=== PATIENT | female | born 1985 | race Hispanic/Latino ===

== ENCOUNTER 2017-09-06 11:25 | Emergency (ER) | payer BC ==
[2017-09-06 12:28] LABS: APPEARANCE,URINE Clear (CLEAR); BILIRUBIN,URINE Negative (NEGATIVE); COLOR,URINE Yellow (YELLOW); GLUCOSE, URINE (UA) Negative (NEGATIVE); KETONES,URINE Negative (NEGATIVE); LEUKOCYTE ESTERASE ,URINE Trace (NEGATIVE); NITRATE,URINE Negative (NEGATIVE); OCCULT BLOOD,URINE Negative (NEGATIVE); PROTEIN,URINE Negative (NEGATIVE)
[2017-09-06 12:32] LABS: HCG,QUAL RESULT POSITIVE (NEGATIVE)
[2017-09-06 12:35] LABS: AMPHET/METH SCREEN,URINE NEGATIVE (NEGATIVE); BARBITURATE SCREEN, URINE NEGATIVE (NEGATIVE); BENZODIAZEPINES SCREEN,URINE NEGATIVE (NEGATIVE); CANNABINOID SCREEN,URINE POSITIVE (NEGATIVE); COCAINE SCREEN,URINE NEGATIVE (NEGATIVE); OPIATE SCREEN,URINE NEGATIVE (NEGATIVE); PHENCYCLIDINE SCREEN,URINE NEGATIVE (NEGATIVE)
[2017-09-06 12:59] LABS: BACTERIA,URINE Rare /HPF (None Seen); RBC,URINE 0-1 /HPF (0-1); SQUAMOUS EPITHELIAL CELL,UR Rare /LPF (0-2); WBC,URINE 0-1 /HPF (0-1)
== END 2017-09-06 12:55 | disposition home or self-care (01) ==
LOC: EDH 11:25
DX: O21.9 Vomiting of pregnancy, unspecified (principal); O26.891 Other specified pregnancy related conditions, first trimester; M54.5 Low back pain; Z72.0 Tobacco use; Z3A.01 Less than 8 weeks gestation of pregnancy
CPT/HCPCS: 36415; 80305; 81001; 81025; 84702

== ENCOUNTER 2017-11-07 11:30 | Emergency (ER) | payer BC, MEDICAID ==
[2017-11-07] MEDS ORDERED: SODIUM CHLORIDE 0.9% 1000ML 1,000 ML IV ONE (11:57)
[2017-11-07] MEDS ORDERED: ONDANSETRON ODT 4 MG TAB ONE ×2 (11:57→16:55)
[2017-11-07 12:14] LABS: BASOPHILS % (AUTO) 0.2 % (0.0-5.0); EOSINOPHILS % (AUTO) 0.1 % (0.0-8.0); HEMATOCRIT 36.3 % (36-48); LYMPHOCYTES % (AUTO) 4.3 % (21.0-51.0); MEAN CORPUSCULAR HEMOGLOBIN 32.1 pg (27.0-33.0); MEAN CORPUSCULAR HGB CONC 34.7 g/dL (32.0-36.0); MEAN CORPUSCULAR VOLUME 92.5 fL (79-99); MONOCYTES % (AUTO) 2.1 % (3.0-13.0); NEUTROPHILS % (AUTO) 93.3 % (40.0-77.0); PLATELET COUNT (AUTO) 212 K/uL (130-400); RED BLOOD CELL COUNT(AUTO) 3.92 MIL/uL (4.00-5.50); RED CELL DISTRIBUTION WIDTH 13.2 % (11.0-15.5); WHITE BLOOD COUNT (AUTO) 14.2 K/uL (4.8-10.8)
[2017-11-07 12:31] LABS: CREATININE 0.8 mg/dL (0.5-1.5); POTASSIUM 3.3 mmol/L (3.5-5.1)
[2017-11-07 12:57] LABS: ALBUMIN 3.4 g/dL (3.5-5.0); BILIRUBIN,TOTAL 0.7 mg/dL (0.2-1.0); TOTAL PROTEIN, SERUM 7.6 g/dL (6.0-8.3)
== END 2017-11-07 17:26 | disposition home or self-care (01) ==
LOC: EDH 11:30
DX: O21.9 Vomiting of pregnancy, unspecified (principal); Z3A.14 14 weeks gestation of pregnancy
CPT/HCPCS: 36415; 76805; 80053; 84702; 85025; 85378; 93005; 96360; 99285; J7030

== ENCOUNTER 2017-12-05 10:00 | Emergency (ER) | payer MEDICAID ==
[2017-12-05] MEDS ORDERED: SODIUM CHLORIDE 0.9% 1000ML 1,000 ML IV ONE (10:39)
[2017-12-05 10:41] LABS: BASOPHILS % (AUTO) 0.3 % (0.0-5.0); EOSINOPHILS % (AUTO) 2.9 % (0.0-8.0); HEMATOCRIT 34.1 % (36-48); LYMPHOCYTES % (AUTO) 16.8 % (21.0-51.0); MEAN CORPUSCULAR HEMOGLOBIN 32.2 pg (27.0-33.0); MEAN CORPUSCULAR HGB CONC 34.4 g/dL (32.0-36.0); MEAN CORPUSCULAR VOLUME 93.7 fL (79-99); PLATELET COUNT (AUTO) 192 K/uL (130-400); RED BLOOD CELL COUNT(AUTO) 3.64 MIL/uL (4.00-5.50); RED CELL DISTRIBUTION WIDTH 13.3 % (11.0-15.5); WHITE BLOOD COUNT (AUTO) 10.4 K/uL (4.8-10.8)
[2017-12-05 10:50] LABS: CREATININE 0.5 mg/dL (0.5-1.5); POTASSIUM 3.6 mmol/L (3.5-5.1)
[2017-12-05 11:16] LABS: ALBUMIN 3.1 g/dL (3.5-5.0); BILIRUBIN,TOTAL 0.3 mg/dL (0.2-1.0); TOTAL PROTEIN, SERUM 6.8 g/dL (6.0-8.3)
== END 2017-12-05 13:41 | disposition home or self-care (01) ==
LOC: EDH 10:00
DX: O21.0 Mild hyperemesis gravidarum (principal); Z3A.17 17 weeks gestation of pregnancy; Z87.891 Personal history of nicotine dependence
CPT/HCPCS: 36415; 76805; 80053; 84702; 85025; 96360; 96361; 99285; J7030

== ENCOUNTER 2018-01-29 09:47 | Observation (INO) | payer MEDICAID ==
[~2018-01-29] VITALS: Ht 175.3 cm; Wt 121.6 kg
[2018-01-29 10:24] LABS: BILIRUBIN,URINE Negative (NEGATIVE); COLOR,URINE Yellow (YELLOW); GLUCOSE, URINE (UA) Negative (NEGATIVE); KETONES,URINE Negative (NEGATIVE); LEUKOCYTE ESTERASE ,URINE Small (NEGATIVE); NITRATE,URINE Negative (NEGATIVE); OCCULT BLOOD,URINE Negative (NEGATIVE); PH,URINE 8.5 (5.0-8.0); PROTEIN,URINE Negative (NEGATIVE)
[2018-01-29 10:28] LABS: APPEARANCE,URINE SLIGHTLY CLOUDY (CLEAR)
[2018-01-29 10:32] LABS: AMPHET/METH SCREEN,URINE NEGATIVE (NEGATIVE); BARBITURATE SCREEN, URINE NEGATIVE (NEGATIVE); BENZODIAZEPINES SCREEN,URINE NEGATIVE (NEGATIVE); CANNABINOID SCREEN,URINE POSITIVE (NEGATIVE); COCAINE SCREEN,URINE NEGATIVE (NEGATIVE); OPIATE SCREEN,URINE NEGATIVE (NEGATIVE); PHENCYCLIDINE SCREEN,URINE NEGATIVE (NEGATIVE)
[2018-01-29 10:37] LABS: BACTERIA,URINE Few /HPF (None Seen); MUCUS,URINE Few LPF (None Seen); RBC,URINE None Seen /HPF (0-1); SQUAMOUS EPITHELIAL CELL,UR Few /HPF (0-2)
[2018-01-29] MEDS ORDERED: PROMETHAZINE HCL 25 MG/ML 1ML AMPULE IM SCH (11:30)
[2018-01-29 11:41] LABS: BASOPHILS % (AUTO) 0.1 % (0.0-5.0); EOSINOPHILS % (AUTO) 2.6 % (0.0-8.0); HEMATOCRIT 29.9 % (36-48); LYMPHOCYTES % (AUTO) 19.5 % (21.0-51.0); MEAN CORPUSCULAR HEMOGLOBIN 33.7 pg (27.0-33.0); MEAN CORPUSCULAR HGB CONC 35.2 g/dL (32.0-36.0); MEAN CORPUSCULAR VOLUME 95.8 fL (79-99); NEUTROPHILS % (AUTO) 72.8 % (40.0-77.0); PLATELET COUNT (AUTO) 181 K/uL (130-400); RED BLOOD CELL COUNT(AUTO) 3.12 MIL/uL (4.00-5.50); RED CELL DISTRIBUTION WIDTH 13.2 % (11.0-15.5); WHITE BLOOD COUNT (AUTO) 9.4 K/uL (4.8-10.8)
[2018-01-29 11:53] LABS: CREATININE 0.5 mg/dL (0.5-1.5); POTASSIUM 3.6 mmol/L (3.5-5.1)
[2018-01-29 11:58] LABS: ALBUMIN 2.7 g/dL (3.5-5.0); BILIRUBIN,TOTAL 0.2 mg/dL (0.2-1.0); TOTAL PROTEIN, SERUM 6.2 g/dL (6.0-8.3)
[2018-01-29] MEDS ORDERED: LACTATED RINGERS 1000ML 1,000 ML IV SCH (12:00)
== END 2018-01-29 12:30 | disposition home or self-care (01) ==
LOC: EDH 09:47 → LDH 09:48
PROVIDERS: ADMIT Obstetrics & Gynecology; ATTEND Obstetrics & Gynecology
DX: O21.1 Hyperemesis gravidarum with metabolic disturbance (principal); F19.10 Other psychoactive substance abuse, uncomplicated; O99.322 Drug use complicating pregnancy, second trimester; Z3A.26 26 weeks gestation of pregnancy
CPT/HCPCS: 36415; 80053; 80305; 81001; 82150; 83690; 85025; 96372; 99285; G0378 ×3; J2550; 96360; 96361

== ENCOUNTER 2018-02-11 10:02 | Observation (INO) | payer MEDICAID ==
[2018-02-11 11:24] LABS: APPEARANCE,URINE Cloudy (CLEAR); BILIRUBIN,URINE Negative (NEGATIVE); COLOR,URINE Yellow (YELLOW); GLUCOSE, URINE (UA) Negative (NEGATIVE); KETONES,URINE Negative (NEGATIVE); LEUKOCYTE ESTERASE ,URINE Negative (NEGATIVE); NITRATE,URINE Negative (NEGATIVE); OCCULT BLOOD,URINE Negative (NEGATIVE); PROTEIN,URINE Negative (NEGATIVE)
[2018-02-11 11:30] LABS: AMPHET/METH SCREEN,URINE NEGATIVE (NEGATIVE); BARBITURATE SCREEN, URINE NEGATIVE (NEGATIVE); BENZODIAZEPINES SCREEN,URINE NEGATIVE (NEGATIVE); CANNABINOID SCREEN,URINE POSITIVE (NEGATIVE); COCAINE SCREEN,URINE NEGATIVE (NEGATIVE); OPIATE SCREEN,URINE NEGATIVE (NEGATIVE); PHENCYCLIDINE SCREEN,URINE NEGATIVE (NEGATIVE)
[2018-02-11 12:00] LABS: RBC,URINE 0-1 /HPF (0-1)
[2018-02-11 12:01] LABS: WBC,URINE 0-1 /HPF (0-1)
[2018-02-11 12:02] LABS: MUCUS,URINE Few LPF (None Seen); SQUAMOUS EPITHELIAL CELL,UR Few /HPF (0-2)
[2018-02-11 12:03] LABS: AMORPHOUS SEDIMENT,UR Many /LPF (None Seen); BACTERIA,URINE Few /HPF (None Seen)
[2018-02-11] MEDS ORDERED: LACTATED RINGERS 1000ML 1,000 ML IV SCH (12:15)
[2018-02-11] MEDS ORDERED: PROMETHAZINE HCL 25 MG/ML 1ML AMPULE IM SCH (12:15)
[2018-02-11] MEDS ORDERED: ONDANSETRON HCL 4 MG/2 ML VIAL IVP SCH (12:15)
== END 2018-02-11 15:22 | disposition home or self-care (01) ==
LOC: EDH 10:02 → LDH 10:03
PROVIDERS: ADMIT Obstetrics & Gynecology; ATTEND Obstetrics & Gynecology
DX: O99.352 Diseases of the nervous system complicating pregnancy, second trimester (principal); O26.893 Other specified pregnancy related conditions, third trimester; O21.2 Late vomiting of pregnancy; R42 Dizziness and giddiness; G43.909 Migraine, unspecified, not intractable, without status migrainosus; O99.342 Other mental disorders complicating pregnancy, second trimester; O99.322 Drug use complicating pregnancy, second trimester; F12.10 Cannabis abuse, uncomplicated; F41.9 Anxiety disorder, unspecified; Z3A.27 27 weeks gestation of pregnancy; Z79.899 Other long term (current) drug therapy
CPT/HCPCS: 80305; 81001; 96361 ×2; 96372; 96374; 99285; G0378 ×5; J2405; J2550; J7120; 96360

== ENCOUNTER 2018-06-17 08:55 | Emergency (ER) | payer MEDICAID ==
[2018-06-17 10:04] LABS: BASOPHILS % (AUTO) 0.5 % (0.0-5.0); EOSINOPHILS % (AUTO) 8.7 % (0.0-8.0); HEMATOCRIT 37.6 % (36-48); LYMPHOCYTES % (AUTO) 26.8 % (21.0-51.0); MEAN CORPUSCULAR HEMOGLOBIN 31.1 pg (27.0-33.0); MEAN CORPUSCULAR HGB CONC 33.4 g/dL (32.0-36.0); MEAN CORPUSCULAR VOLUME 92.9 fL (79-99); MONOCYTES % (AUTO) 8.6 % (3.0-13.0); NEUTROPHILS % (AUTO) 55.4 % (40.0-77.0); PLATELET COUNT (AUTO) 199 K/uL (130-400); RED BLOOD CELL COUNT(AUTO) 4.05 MIL/uL (4.00-5.50); WHITE BLOOD COUNT (AUTO) 6.7 K/uL (4.8-10.8)
[2018-06-17 10:10] LABS: APPEARANCE,URINE TURBID (CLEAR); BILIRUBIN,URINE NEGATIVE (NEGATIVE); COLOR,URINE RED (YELLOW); GLUCOSE, URINE (UA) NEGATIVE (NEGATIVE); KETONES,URINE NEGATIVE (NEGATIVE); LEUKOCYTE ESTERASE ,URINE SMALL (NEGATIVE); NITRATE,URINE NEGATIVE (NEGATIVE); OCCULT BLOOD,URINE LARGE (NEGATIVE); PROTEIN,URINE 100 (NEGATIVE)
[2018-06-17 10:14] LABS: CREATININE 0.8 mg/dL (0.5-1.5); POTASSIUM 3.9 mmol/L (3.5-5.1)
[2018-06-17 10:16] LABS: INR 0.93 (0.85-1.15); PARTIAL THROMBOPLASTIN TIME 28.1 SEC (26.3-35.5); PROTHROMBIN TIME 9.8 SEC (9.6-11.6)
[2018-06-17 10:20] LABS: ALBUMIN 3.4 g/dL (3.5-5.0); BILIRUBIN,TOTAL 0.2 mg/dL (0.2-1.0); TOTAL PROTEIN, SERUM 7.2 g/dL (6.0-8.3)
[2018-06-17 10:23] LABS: RBC,URINE TNTC /HPF (0-1)
[2018-06-17 10:24] LABS: BACTERIA,URINE Few /HPF (None Seen); WBC,URINE 26-50 /HPF (0-1)
[2018-06-17 10:25] LABS: SQUAMOUS EPITHELIAL CELL,UR Few /HPF (0-2)
[2018-06-17] MEDS ORDERED: IBUPROFEN 200 MG TAB ONE (13:40)
== END 2018-06-17 13:51 | disposition home or self-care (01) ==
LOC: EDH 08:55
DX: R60.0 Localized edema (principal); M65.842 Other synovitis and tenosynovitis, left hand; N39.0 Urinary tract infection, site not specified; Z79.899 Other long term (current) drug therapy
CPT/HCPCS: 36415; 80053; 81001; 82550; 85025; 85378; 85610; 85730; 93970

== ENCOUNTER 2019-02-04 16:58 | Emergency (ER) | payer OTHER | END 2019-02-04 17:13 | disposition home or self-care (01) | LOC: EDH 16:58 | DX: S93.402A Sprain of unspecified ligament of left ankle, initial encounter (principal); Z72.0 Tobacco use; X58.XXXA Exposure to other specified factors, initial encounter; Y93.89 Activity, other specified; Y92.39 Other specified sports and athletic area as the place of occurrence of the external cause; Y99.8 Other external cause status | CPT/HCPCS: 99281 ==

== ENCOUNTER 2020-05-16 13:00 | Emergency (ER) | payer BC ==
[2020-05-16] MEDS ORDERED: DEXAMETHASONE SOD PHOSPHATE 10MG/ML 1ML VIAL ONE (14:25)
[2020-05-16] MEDS ORDERED: KETOROLAC TROMETHAMINE 30MG/ML ONE (14:26)
== END 2020-05-16 15:23 | disposition home or self-care (01) ==
LOC: EDH 13:00
DX: M25.542 Pain in joints of left hand (principal); M25.541 Pain in joints of right hand; M19.90 Unspecified osteoarthritis, unspecified site; Z72.0 Tobacco use
CPT/HCPCS: 96372 ×2; 99284; J1100; J1885

== ENCOUNTER 2020-07-08 21:42 | Emergency (ER) | payer BC, OTHER ==
[2020-07-08] MEDS ORDERED: ORPHENADRINE CITRATE 30 MG/ML ML ONE (22:18)
[2020-07-08] MEDS ORDERED: KETOROLAC TROMETHAMINE 60 MG/2 ML VIAL ONE (22:18)
[2020-07-08] MEDS ORDERED: PREDNISONE 20 MG TABLET ONE (22:18)
== END 2020-07-08 23:22 | disposition home or self-care (01) ==
LOC: EDH 21:42
DX: S39.012A Strain of muscle, fascia and tendon of lower back, initial encounter (principal); S29.012A Strain of muscle and tendon of back wall of thorax, initial encounter; M19.90 Unspecified osteoarthritis, unspecified site; M06.9 Rheumatoid arthritis, unspecified; Z72.0 Tobacco use; Z98.890 Other specified postprocedural states; V49.49XA Driver injured in collision with other motor vehicles in traffic accident, initial encounter; Y93.89 Activity, other specified; Y92.89 Other specified places as the place of occurrence of the external cause; Y99.8 Other external cause status
CPT/HCPCS: 96372 ×2; 99284; J1885; J2360

== ENCOUNTER 2020-08-06 11:36 | Emergency (ER) | payer OTHER ==
[2020-08-06] MEDS ORDERED: CYCLOBENZAPRINE HCL 10 MG TABLET ONE (12:08)
[2020-08-06] MEDS ORDERED: HYDROCODONE/ACETAMINOPHEN 10/325 MG TAB ONE (12:08)
[2020-08-06 13:39] LABS: APPEARANCE,URINE CLOUDY (CLEAR); BILIRUBIN,URINE NEGATIVE (NEGATIVE); COLOR,URINE RED (YELLOW); GLUCOSE, URINE (UA) NEGATIVE (NEGATIVE); KETONES,URINE NEGATIVE (NEGATIVE); LEUKOCYTE ESTERASE ,URINE NEGATIVE (NEGATIVE); NITRATE,URINE NEGATIVE (NEGATIVE); OCCULT BLOOD,URINE LARGE (NEGATIVE); PH,URINE 5.5 (5.0-8.0); PROTEIN,URINE TRACE mg/dL (NEGATIVE); UROBILINOGEN,URINE 0.2 mg/dL (0.2-1.0)
[2020-08-06 13:41] LABS: HCG,QUAL RESULT NEGATIVE (NEGATIVE)
[2020-08-06 13:43] LABS: RBC,URINE TNTC /HPF (0-1)
[2020-08-06 13:44] LABS: BACTERIA,URINE Rare /HPF (None Seen); SQUAMOUS EPITHELIAL CELL,UR Few /HPF (0-2)
== END 2020-08-06 13:58 | disposition home or self-care (01) ==
LOC: EDH 11:36
DX: M54.5 Low back pain (principal); M06.9 Rheumatoid arthritis, unspecified; Z72.0 Tobacco use
CPT/HCPCS: 72100; 81001; 81025

== ENCOUNTER 2020-10-07 14:35 | Emergency (ER) | payer OTHER ==
[2020-10-07] MEDS ORDERED: METHYLPREDNISOLONE SOD SUCC 125MG/2ML VIAL ONE (14:58)
== END 2020-10-07 16:21 | disposition home or self-care (01) ==
LOC: EDH 14:35
DX: M06.9 Rheumatoid arthritis, unspecified (principal); M65.842 Other synovitis and tenosynovitis, left hand; M65.841 Other synovitis and tenosynovitis, right hand; Z72.0 Tobacco use
CPT/HCPCS: 96374; 99283; J2930

== ENCOUNTER 2021-01-13 11:41 | Inpatient (IN) | payer SELFPAY ==
[~2021-01-13] VITALS: Ht 175.3 cm; Wt 55.1 kg
[2021-01-13 12:29] LABS: BASOPHILS % (AUTO) 0.4 % (0.0-5.0); EOSINOPHILS % (AUTO) 6.8 % (0.0-8.0); HEMATOCRIT 38.8 % (36-48); LYMPHOCYTES % (AUTO) 20.6 % (21.0-51.0); MEAN CORPUSCULAR HEMOGLOBIN 29.8 pg (27.0-33.0); MEAN CORPUSCULAR HGB CONC 31.7 g/dL (32.0-36.0); MEAN CORPUSCULAR VOLUME 93.9 fL (79-99); NEUTROPHILS % (AUTO) 64.8 % (40.0-77.0); PLATELET COUNT (AUTO) 250 K/uL (130-400); RED BLOOD CELL COUNT(AUTO) 4.13 MIL/uL (4.00-5.50); RED CELL DISTRIBUTION WIDTH 12.2 % (11.0-15.5); WHITE BLOOD COUNT (AUTO) 8.3 K/uL (4.8-10.8)
[2021-01-13 12:40] LABS: CREATININE 0.8 mg/dL (0.5-1.5); POTASSIUM 4.4 mmol/L (3.5-5.1)
[2021-01-13 12:44] LABS: ALBUMIN 3.4 g/dL (3.5-5.0); BILIRUBIN,TOTAL 0.3 mg/dL (0.2-1.0); TOTAL PROTEIN, SERUM 6.8 g/dL (6.0-8.3)
[2021-01-13 12:51] LABS: INR 0.98 (0.85-1.15); PROTHROMBIN TIME 10.7 SEC (9.6-11.6)
[2021-01-13 12:53] LABS: PARTIAL THROMBOPLASTIN TIME 26.5 SEC (26.3-35.5)
[2021-01-13 13:01] LABS: APPEARANCE,URINE Cloudy (CLEAR); BILIRUBIN,URINE Negative (NEGATIVE); COLOR,URINE Yellow (YELLOW); GLUCOSE, URINE (UA) Negative (NEGATIVE); KETONES,URINE Negative (NEGATIVE); LEUKOCYTE ESTERASE ,URINE Moderate (NEGATIVE); NITRATE,URINE Negative (NEGATIVE); OCCULT BLOOD,URINE Large (NEGATIVE); PH,URINE 5.5 (5.0-8.0); PROTEIN,URINE Negative (NEGATIVE)
[2021-01-13 13:06] LABS: HCG,QUAL RESULT NEGATIVE (NEGATIVE)
[2021-01-13 13:24] LABS: BACTERIA,URINE Few /HPF (None Seen); MUCUS,URINE Few LPF (None Seen); RBC,URINE >100 /HPF (0-1)
[2021-01-13] MEDS ORDERED: IOHEXOL-350 75 ML VIAL IV ONE (13:30)
[2021-01-13] MEDS ORDERED: ZOSYN 3.375GM+NS 50ML 50 ML IV ONE (13:36)
[2021-01-13] MEDS ORDERED: HYDROCODONE/ACETAMINOPHEN 10/325 MG TAB ONE (13:37)
[2021-01-13] MEDS ORDERED: SODIUM CHLORIDE 0.9% 50 ML IV ONE ×2 (13:37→16:09)
[2021-01-13] MEDS: CLINDAMYCIN 600 MG/D5% WATER 50 ML IV SCH ×2 (15:30→21:30)
[2021-01-13] MEDS: CEFEPIME HCL 2 GM VIAL IVP SCH (15:30)
[2021-01-13] MEDS ORDERED: VANCOMYCIN PROTOCOL PER PHARMACY IV SCH (15:30)
[2021-01-13] MEDS: LACTATED RINGERS 1000ML 1,000 ML IV SCH (15:30)
[2021-01-13] MEDS ORDERED: CEFEPIME HCL 2 GM VIAL ONE (16:07)
[2021-01-13] MEDS ORDERED: CLINDAMYCIN 600 MG/D5% WATER 50 ML IV ONE ×2 (16:08→22:59)
[2021-01-13] MEDS ORDERED: LACTATED RINGERS 1000ML 1,000 ML IV ONE (16:08)
[2021-01-13] MEDS ORDERED: COMPOUND IV REFRIGERATED 1 EACH IVSOLN MISC PRN (17:15)
[2021-01-13] MEDS: VANCOMYCIN 1.75 GM in SODIUM CHLORIDE 0.9% 250 ML IV SCH (18:00)
[2021-01-13] MEDS ORDERED: VANCOMYCIN 1GM+NS 250ML 250 ML IV ONE (18:07)
[2021-01-14] MEDS: CLINDAMYCIN 600 MG/D5% WATER 50 ML IV SCH ×4 (03:30→21:30)
[2021-01-14] MEDS: CEFEPIME HCL 2 GM VIAL IVP SCH ×2 (03:30→15:30)
[2021-01-14] MEDS: LACTATED RINGERS 1000ML 1,000 ML IV SCH ×2 (04:50→18:10)
[2021-01-14] MEDS ORDERED: CLINDAMYCIN 600 MG/D5% WATER 50 ML IV ONE ×3 (05:08→19:36)
[2021-01-14] MEDS ORDERED: CEFEPIME HCL 2 GM VIAL ONE ×2 (05:08→15:38)
[2021-01-14] MEDS ORDERED: ACETAMINOPHEN-CODEINE 300/30MG TAB PO PRN (05:15)
[2021-01-14 06:17] LABS: BASOPHILS % (AUTO) 0.2 % (0.0-5.0); EOSINOPHILS % (AUTO) 4.2 % (0.0-8.0); HEMATOCRIT 35.3 % (36-48); LYMPHOCYTES % (AUTO) 20.4 % (21.0-51.0); MEAN CORPUSCULAR HEMOGLOBIN 30.6 pg (27.0-33.0); MEAN CORPUSCULAR HGB CONC 33.1 g/dL (32.0-36.0); MEAN CORPUSCULAR VOLUME 92.4 fL (79-99); MONOCYTES % (AUTO) 7.4 % (3.0-13.0); NEUTROPHILS % (AUTO) 67.6 % (40.0-77.0); PLATELET COUNT (AUTO) 221 K/uL (130-400); RED BLOOD CELL COUNT(AUTO) 3.82 MIL/uL (4.00-5.50); RED CELL DISTRIBUTION WIDTH 12.2 % (11.0-15.5); WHITE BLOOD COUNT (AUTO) 8.2 K/uL (4.8-10.8)
[2021-01-14 06:25] LABS: CREATININE 0.8 mg/dL (0.5-1.5)
[2021-01-14] MEDS: FAMOTIDINE 20MG TAB 20 MG TAB PO SCH ×2 (09:00→21:49)
[2021-01-14] MEDS: VANCOMYCIN 1.75 GM in SODIUM CHLORIDE 0.9% 250 ML IV SCH ×2 (09:00→22:02)
[2021-01-14] MEDS ORDERED: SODIUM CHLORIDE 0.9% 50 ML IV ONE (15:38)
[2021-01-14 20:00] VITALS: BP 124/80
[2021-01-14] MEDS: MORPHINE 2 MG SYG (2MG/1ML) IVP PRN (21:49)
[2021-01-15] VITALS: BP 133/78
[2021-01-15] MEDS: CEFEPIME HCL 2 GM VIAL IVP SCH ×2 (03:16→15:53)
[2021-01-15] MEDS: CLINDAMYCIN 600 MG/D5% WATER 50 ML IV SCH ×2 (03:53→09:23)
[2021-01-15 04:00] VITALS: BP 114/67
[2021-01-15] MEDS: LACTATED RINGERS 1000ML 1,000 ML IV SCH ×2 (05:41→20:07)
[2021-01-15 06:03] LABS: BASOPHILS % (AUTO) 0.3 % (0.0-5.0); EOSINOPHILS % (AUTO) 7.1 % (0.0-8.0); HEMATOCRIT 36.2 % (36-48); LYMPHOCYTES % (AUTO) 28.6 % (21.0-51.0); MEAN CORPUSCULAR HEMOGLOBIN 29.5 pg (27.0-33.0); MEAN CORPUSCULAR VOLUME 92.1 fL (79-99); MONOCYTES % (AUTO) 10.5 % (3.0-13.0); NEUTROPHILS % (AUTO) 53.3 % (40.0-77.0); PLATELET COUNT (AUTO) 204 K/uL (130-400); RED BLOOD CELL COUNT(AUTO) 3.93 MIL/uL (4.00-5.50); RED CELL DISTRIBUTION WIDTH 12.2 % (11.0-15.5); WHITE BLOOD COUNT (AUTO) 5.9 K/uL (4.8-10.8)
[2021-01-15 06:16] LABS: POTASSIUM 4.1 mmol/L (3.5-5.1)
[2021-01-15 06:17] LABS: CREATININE 0.9 mg/dL (0.5-1.5)
[2021-01-15 08:00] VITALS: BP 127/72
[2021-01-15] MEDS: VANCOMYCIN 1.75 GM in SODIUM CHLORIDE 0.9% 250 ML IV SCH ×2 (09:23→20:03)
[2021-01-15] MEDS: FAMOTIDINE 20MG TAB 20 MG TAB PO SCH ×2 (09:24→20:01)
[2021-01-15] MEDS: ENOXAPARIN SODIUM 40 MG/0.4 ML SYRINGE SQ SCH (09:24)
[2021-01-15] MEDS: MORPHINE 2 MG SYG (2MG/1ML) IVP PRN ×2 (11:11→22:34)
[2021-01-15 12:00] VITALS: BP 124/82
[2021-01-15] MEDS: ONDANSETRON HCL 4 MG/2 ML VIAL IVP PRN ×2 (12:58→20:01)
[2021-01-15 16:00] VITALS: BP 125/84
[2021-01-15] MEDS: ACETAMINOPHEN-CODEINE 300/30MG TAB PO PRN (20:01)
[2021-01-15 20:12] VITALS: BP 123/70
[2021-01-16] VITALS (26 sets, daily range): BP systolic 90–143; BP diastolic 45–83
[2021-01-16] MEDS: CEFEPIME HCL 2 GM VIAL IVP SCH ×2 (03:02→17:42)
[2021-01-16 03:42] LABS: BASOPHILS % (AUTO) 0.3 % (0.0-5.0); EOSINOPHILS % (AUTO) 6.1 % (0.0-8.0); HEMATOCRIT 35.4 % (36-48); LYMPHOCYTES % (AUTO) 26.4 % (21.0-51.0); MEAN CORPUSCULAR HEMOGLOBIN 30.7 pg (27.0-33.0); MEAN CORPUSCULAR HGB CONC 33.1 g/dL (32.0-36.0); MEAN CORPUSCULAR VOLUME 92.9 fL (79-99); MONOCYTES % (AUTO) 10.4 % (3.0-13.0); NEUTROPHILS % (AUTO) 56.4 % (40.0-77.0); PLATELET COUNT (AUTO) 196 K/uL (130-400); RED BLOOD CELL COUNT(AUTO) 3.81 MIL/uL (4.00-5.50); RED CELL DISTRIBUTION WIDTH 12.3 % (11.0-15.5); WHITE BLOOD COUNT (AUTO) 6.9 K/uL (4.8-10.8)
[2021-01-16 03:47] LABS: POTASSIUM 3.8 mmol/L (3.5-5.1)
[2021-01-16] MEDS: ONDANSETRON HCL 4 MG/2 ML VIAL IVP PRN ×2 (07:05→15:53)
[2021-01-16] MEDS: FAMOTIDINE 20MG TAB 20 MG TAB PO SCH ×2 (09:00→20:55)
[2021-01-16] MEDS: ENOXAPARIN SODIUM 40 MG/0.4 ML SYRINGE SQ SCH (09:00)
[2021-01-16] MEDS: VANCOMYCIN 1.75 GM in SODIUM CHLORIDE 0.9% 250 ML IV SCH ×2 (09:37→20:47)
[2021-01-16] MEDS: LACTATED RINGERS 1000ML 1,000 ML IV SCH (10:10)
[2021-01-16] MEDS ORDERED: PROPOFOL 10 MG/ML 20ML VIAL IV ONE (14:28)
[2021-01-16] MEDS ORDERED: FENTANYL CITRATE PF 50 MCG/1 ML 2ML VIAL ONE (14:28)
[2021-01-16] MEDS ORDERED: MIDAZOLAM HCL 1 MG/ML 2ML VIAL ONE (14:28)
[2021-01-16] MEDS ORDERED: ROCURONIUM 10MG/1ML SYR 10 MG/ML ML ONE (14:28)
[2021-01-16] MEDS ORDERED: SUCCINYLCHOLINE 200MG/10ML SYR ONE (14:28)
[2021-01-16] MEDS ORDERED: LIDOCAINE HCL MPF 1% 5ML VIAL ONE (14:28)
[2021-01-16] MEDS ORDERED: NEOSTIGMINE 5MG/5ML SYR IV ONE (15:03)
[2021-01-16] MEDS ORDERED: GLYCOPYRROLATE 1 MG/5 ML SYRINGE ONE (15:03)
[2021-01-16] MEDS ORDERED: MEPERIDINE-PF 25 MG/ML SYG ONE ×2 (15:24→15:37)
[2021-01-16] MEDS: MORPHINE 2 MG SYG (2MG/1ML) IVP PRN (19:11)
[2021-01-17 00:16] VITALS: BP 118/72
[2021-01-17] MEDS: LACTATED RINGERS 1000ML 1,000 ML IV SCH ×2 (02:02→12:57)
[2021-01-17] MEDS: ACETAMINOPHEN-CODEINE 300/30MG TAB PO PRN ×2 (02:06→15:59)
[2021-01-17] MEDS: CEFEPIME HCL 2 GM VIAL IVP SCH (02:53)
[2021-01-17 04:16] VITALS: BP 123/71
[2021-01-17 08:51] LABS: BASOPHILS % (AUTO) 0.3 % (0.0-5.0); EOSINOPHILS % (AUTO) 7.6 % (0.0-8.0); HEMATOCRIT 35.7 % (36-48); LYMPHOCYTES % (AUTO) 25.1 % (21.0-51.0); MEAN CORPUSCULAR HEMOGLOBIN 30.1 pg (27.0-33.0); MEAN CORPUSCULAR HGB CONC 32.5 g/dL (32.0-36.0); MEAN CORPUSCULAR VOLUME 92.7 fL (79-99); MONOCYTES % (AUTO) 8.9 % (3.0-13.0); NEUTROPHILS % (AUTO) 57.8 % (40.0-77.0); PLATELET COUNT (AUTO) 205 K/uL (130-400); RED BLOOD CELL COUNT(AUTO) 3.85 MIL/uL (4.00-5.50); RED CELL DISTRIBUTION WIDTH 12.3 % (11.0-15.5); WHITE BLOOD COUNT (AUTO) 6.7 K/uL (4.8-10.8)
[2021-01-17 08:58] LABS: CREATININE 0.8 mg/dL (0.5-1.5); POTASSIUM 4.2 mmol/L (3.5-5.1)
[2021-01-17 09:24] VITALS: BP 110/61
[2021-01-17] MEDS: VANCOMYCIN 1.75 GM in SODIUM CHLORIDE 0.9% 250 ML IV SCH (10:06)
[2021-01-17] MEDS: FAMOTIDINE 20MG TAB 20 MG TAB PO SCH (10:06)
[2021-01-17] MEDS: MORPHINE 2 MG SYG (2MG/1ML) IVP PRN ×2 (10:15→23:31)
[2021-01-17] MEDS: ONDANSETRON HCL 4 MG/2 ML VIAL IVP PRN (10:15)
[2021-01-17 11:30] VITALS: BP 121/62
[2021-01-17] MEDS ORDERED: VANCOMYCIN 1.25 GM in SODIUM CHLORIDE 0.9% 250 ML IV SCH (14:00)
[2021-01-17] MEDS: LEVOFLOXACIN 750 MG TABLET PO SCH (16:02)
[2021-01-17 16:32] VITALS: BP 111/50
[2021-01-17 20:01] VITALS: BP 108/63
[2021-01-18] VITALS (7 sets, daily range): BP systolic 111–148; BP diastolic 52–96
[2021-01-18] MEDS: LEVOFLOXACIN 750 MG TABLET PO SCH (09:57)
[2021-01-18] MEDS: FAMOTIDINE 20MG TAB 20 MG TAB PO SCH ×2 (09:58→21:25)
[2021-01-18] MEDS: MORPHINE 2 MG SYG (2MG/1ML) IVP PRN ×2 (15:52→21:25)
[2021-01-18] MEDS: ACETAMINOPHEN-CODEINE 300/30MG TAB PO PRN (22:51)
[2021-01-19] VITALS (22 sets, daily range): BP systolic 113–164; BP diastolic 64–92
[2021-01-19 06:23] LABS: BASOPHILS % (AUTO) 0.3 % (0.0-5.0); EOSINOPHILS % (AUTO) 9.3 % (0.0-8.0); HEMATOCRIT 35.1 % (36-48); LYMPHOCYTES % (AUTO) 30.8 % (21.0-51.0); MEAN CORPUSCULAR HEMOGLOBIN 30.5 pg (27.0-33.0); MEAN CORPUSCULAR HGB CONC 32.8 g/dL (32.0-36.0); MEAN CORPUSCULAR VOLUME 93.1 fL (79-99); MONOCYTES % (AUTO) 9.7 % (3.0-13.0); NEUTROPHILS % (AUTO) 49.4 % (40.0-77.0); PLATELET COUNT (AUTO) 184 K/uL (130-400); RED BLOOD CELL COUNT(AUTO) 3.77 MIL/uL (4.00-5.50); RED CELL DISTRIBUTION WIDTH 12.3 % (11.0-15.5); WHITE BLOOD COUNT (AUTO) 6.6 K/uL (4.8-10.8)
[2021-01-19 06:30] LABS: CREATININE 0.8 mg/dL (0.5-1.5); POTASSIUM 4.1 mmol/L (3.5-5.1)
[2021-01-19] MEDS ORDERED: MINERAL OIL 30 ML UDCUP ONE (07:20)
[2021-01-19] MEDS ORDERED: CEFAZOLIN SODIUM 1 GM VIAL ONE (07:20)
[2021-01-19] MEDS ORDERED: LACTATED RINGERS 1000ML 1,000 ML IV ONE (07:35)
[2021-01-19] MEDS ORDERED: PROPOFOL 10 MG/ML 20ML VIAL IV ONE (07:52)
[2021-01-19] MEDS ORDERED: MIDAZOLAM HCL 1 MG/ML 2ML VIAL ONE (07:52)
[2021-01-19] MEDS ORDERED: ROCURONIUM 10MG/1ML SYR 10 MG/ML ML ONE (08:00)
[2021-01-19] MEDS ORDERED: GLYCOPYRROLATE 1 MG/5 ML SYRINGE ONE (08:28)
[2021-01-19] MEDS ORDERED: ONDANSETRON HCL 4 MG/2 ML VIAL ONE (08:28)
[2021-01-19] MEDS ORDERED: NEOSTIGMINE 5MG/5ML SYR IV ONE (08:29)
[2021-01-19] MEDS ORDERED: MEPERIDINE-PF 25 MG/ML SYG ONE ×2 (08:49→09:07)
[2021-01-19] MEDS: LEVOFLOXACIN 750 MG TABLET PO SCH (09:56)
[2021-01-19] MEDS: FAMOTIDINE 20MG TAB 20 MG TAB PO SCH ×2 (09:57→20:25)
[2021-01-19] MEDS ORDERED: CEFAZOLIN SODIUM 1 GM VIAL IVP SCH (11:00)
[2021-01-19] MEDS: ACETAMINOPHEN-CODEINE 300/30MG TAB PO PRN ×2 (15:01→21:22)
[2021-01-19] MEDS ORDERED: MORPHINE 2 MG SYG (2MG/1ML) ONE (16:27)
[2021-01-19] MEDS: MORPHINE 2 MG SYG (2MG/1ML) IVP PRN (22:16)
[2021-01-20] VITALS: BP 130/82
[2021-01-20] MEDS: ACETAMINOPHEN-CODEINE 300/30MG TAB PO PRN ×2 (03:19→14:31)
[2021-01-20 04:00] VITALS: BP 119/59
[2021-01-20] MEDS: MORPHINE 2 MG SYG (2MG/1ML) IVP PRN ×2 (06:23→13:00)
[2021-01-20 06:51] LABS: BASOPHILS % (AUTO) 0.2 % (0.0-5.0); EOSINOPHILS % (AUTO) 9.2 % (0.0-8.0); LYMPHOCYTES % (AUTO) 29.3 % (21.0-51.0); MEAN CORPUSCULAR HEMOGLOBIN 29.9 pg (27.0-33.0); MEAN CORPUSCULAR VOLUME 93.6 fL (79-99); MONOCYTES % (AUTO) 9.2 % (3.0-13.0); NEUTROPHILS % (AUTO) 51.9 % (40.0-77.0); PLATELET COUNT (AUTO) 191 K/uL (130-400); RED BLOOD CELL COUNT(AUTO) 3.74 MIL/uL (4.00-5.50); RED CELL DISTRIBUTION WIDTH 12.5 % (11.0-15.5); WHITE BLOOD COUNT (AUTO) 5.4 K/uL (4.8-10.8)
[2021-01-20 07:30] LABS: CREATININE 0.7 mg/dL (0.5-1.5); POTASSIUM 4.1 mmol/L (3.5-5.1)
[2021-01-20 08:00] VITALS: BP 121/74
[2021-01-20] MEDS: FAMOTIDINE 20MG TAB 20 MG TAB PO SCH (08:33)
[2021-01-20] MEDS: LEVOFLOXACIN 750 MG TABLET PO SCH (08:33)
[2021-01-20 12:00] VITALS: BP 128/88
[2021-01-20] MEDS ORDERED: LEVO750T46 PO (14:09)
[2021-01-20] MEDS ORDERED: MORPHINE 2 MG SYG (2MG/1ML) IVP ONE (17:00)
== END 2021-01-20 18:45 | disposition home or self-care (01) | DRG 577 ==
LOC: EDH 11:41 → EDHIP 11:42 → 3BH 01-14 19:36
PROVIDERS: ADMIT Internal Medicine; ATTEND Internal Medicine
PROC: 0JB60ZZ Excision of Chest Subcutaneous Tissue and Fascia, Open Approach (ICD-10-PCS; principal; 2021-01-16 13:25)
PROC: 0JB60ZZ Excision of Chest Subcutaneous Tissue and Fascia, Open Approach (ICD-10-PCS; 2021-01-19)
PROC: 0HBJXZZ Excision of Left Upper Leg Skin, External Approach (ICD-10-PCS; 2021-01-19)
PROC: 0HR5X74 Replacement of Chest Skin with Autologous Tissue Substitute, Partial Thickness, External Approach (ICD-10-PCS; 2021-01-19 07:51)
DX: N64.1 Fat necrosis of breast (principal); N39.0 Urinary tract infection, site not specified; Z68.1 Body mass index [BMI] 19.9 or less, adult; R78.81 Bacteremia; N61.0 Mastitis without abscess; E66.9 Obesity, unspecified; M06.9 Rheumatoid arthritis, unspecified; E28.2 Polycystic ovarian syndrome; B96.5 Pseudomonas (aeruginosa) (mallei) (pseudomallei) as the cause of diseases classified elsewhere; R31.9 Hematuria, unspecified; Z20.822 Contact with and (suspected) exposure to COVID-19; Z98.82 Breast implant status; Z88.8 Allergy status to other drugs, medicaments and biological substances; Z91.018 Allergy to other foods
CPT/HCPCS: 36415; 71260; 80048; 80053; 80202; 81001; 81025; 82948; 83605; 84145; 85025; 85610; 85730; 87040; 87070; 87071; 87076; 87077; 87088; 87186; 87205; 87635; C9803; G0378; J0330; J0690; J0692; J2175; J2250; J2405; J2543; J2704; J2710; J3010; J3370; J3490; J7030; J7050; J7120; Q9967

== ENCOUNTER 2021-09-18 18:20 | Emergency (ER) | payer OTHER ==
[~2021-09-18] VITALS: Ht 175.3 cm; Wt 120.7 kg
[~2021-09-18 18:20] MED LIST: LEVO750T46 PO
[2021-09-18] MEDS ORDERED: OSEL75 PO (20:02)
[2021-09-18] MEDS ORDERED: ONDA4TAB10 PO (20:02)
[2021-09-18] MEDS ORDERED: BENZ-39 PO (20:02)
[2021-09-18 20:17] VITALS: BP 124/78
== END 2021-09-18 20:18 | disposition home or self-care (01) ==
LOC: EEVIPCON 18:20 → EDH 18:20
DX: J10.1 Influenza due to other identified influenza virus with other respiratory manifestations (principal); M06.9 Rheumatoid arthritis, unspecified; J39.9 Disease of upper respiratory tract, unspecified; Z20.822 Contact with and (suspected) exposure to COVID-19
CPT/HCPCS: 87635; 87804 ×2; 99283; C9803

== ENCOUNTER 2022-08-02 07:20 | Emergency (ER) | payer OTHER ==
[~2022-08-02] VITALS: Ht 177.8 cm; Wt 127.0 kg
[~2022-08-02 07:20] MED LIST changes: +BENZ-39 PO; -LEVO750T46 PO; +LEVO750T68 PO; +ONDA4TAB10 PO; +OSEL75 PO
[2022-08-02 07:24] VITALS: BP 153/96
[2022-08-02 10:24] LABS: APPEARANCE,URINE CLEAR (CLEAR); BILIRUBIN,URINE NEGATIVE (NEGATIVE); COLOR,URINE YELLOW (YELLOW); GLUCOSE, URINE (UA) NEGATIVE (NEGATIVE); KETONES,URINE 10 mg/dL (NEGATIVE); LEUKOCYTE ESTERASE ,URINE 25 Leu/uL (NEGATIVE); NITRATE,URINE NEGATIVE (NEGATIVE); PH,URINE 7.5 (5.0-8.0); PROTEIN,URINE 20 mg/dL (NEGATIVE)
[2022-08-02 10:53] LABS: MUCUS,URINE RARE LPF (None Seen); RBC,URINE 26-50 /HPF (0-1); SQUAMOUS EPITHELIAL CELL,UR FEW /HPF (0-2)
[2022-08-02] MEDS ORDERED: ONDANSETRON 4MG INJ IVP SCH (12:02)
[2022-08-02] MEDS ORDERED: ONDANSETRON ODT 4MG TAB SL SCH (12:06)
[2022-08-02] MEDS ORDERED: CEFTRIAXONE 1G VIAL ONE (12:09)
[2022-08-02] MEDS ORDERED: ACETAMINOPHEN 500 MG TABLET ONE (12:09)
[2022-08-02] MEDS ORDERED: ONDANSETRON ODT 4MG TAB ONE (12:10)
[2022-08-02] MEDS ORDERED: NITROFURANTOIN MONOHYD/M-CRYST 100 MG CAPSULE PO ONE (12:10)
[2022-08-02] MEDS ORDERED: ONDA4TAB10 PO (12:16)
[2022-08-02] MEDS ORDERED: MACR100 PO (12:16)
[2022-08-02] MEDS ORDERED: ACETAMINOPHEN 500 MG TABLET PO ONE (12:30)
[2022-08-02] MEDS ORDERED: NITROFURANTOIN MONOHYD/M-CRYST 100 MG CAPSULE PO SCH (12:30)
[2022-08-02] MEDS ORDERED: CEFTRIAXONE 1G VIAL IM ONE (12:30)
== END 2022-08-02 12:33 | disposition home or self-care (01) ==
LOC: EDH 07:20
DX: N39.0 Urinary tract infection, site not specified (principal); J10.1 Influenza due to other identified influenza virus with other respiratory manifestations; Z20.822 Contact with and (suspected) exposure to COVID-19; M19.90 Unspecified osteoarthritis, unspecified site
CPT/HCPCS: 99284; 87635; 87804 ×2; 81001; C9803; J0696

== ENCOUNTER 2023-04-19 10:41 | Emergency (ER) | payer OTHER ==
[~2023-04-19] VITALS: Ht 175.3 cm; Wt 132.0 kg
[~2023-04-19 10:41] MED LIST changes: +MACR100 PO
[2023-04-19 11:25] LABS: BASOPHILS # (AUTO) 0.01 K/uL (0.00-0.20); BASOPHILS % (AUTO) 0.1 % (0.0-5.0); IMMATURE GRANULOCYTE ABSOLUTE 0.03 K/uL (0-1); LYMPHOCYTES # (AUTO) 1.2 K/uL (1.0-4.8); LYMPHOCYTES % (AUTO) 13.7 % (21.0-51.0); MEAN CORPUSCULAR HEMOGLOBIN 31.1 pg (27.0-33.0); MEAN CORPUSCULAR HGB CONC 32.9 g/dL (32.0-36.0); MEAN CORPUSCULAR VOLUME 94.5 fL (79-99); MONOCYTES # (AUTO) 0.3 K/uL (0.1-1.0); MONOCYTES % (AUTO) 3.4 % (3.0-13.0); NEUTROPHILS # (AUTO) 7.1 K/uL (1.8-7.7); NEUTROPHILS % (AUTO) 82.5 % (40.0-77.0); PLATELET COUNT (AUTO) 210 K/uL (130-400); RED BLOOD CELL COUNT(AUTO) 4.34 MIL/uL (4.00-5.50); RED CELL DISTRIBUTION WIDTH 12.8 % (11.0-15.5); WHITE BLOOD COUNT (AUTO) 8.6 K/uL (4.8-10.8)
[2023-04-19] MEDS ORDERED: 0.9%NACL 1000ML 1,000 ML IV ONE (11:30)
[2023-04-19] MEDS ORDERED: ONDANSETRON 4MG INJ IVP ONE (11:30)
[2023-04-19 11:32] LABS: CREATININE 0.7 mg/dL (0.5-1.5); POTASSIUM 4.3 mmol/L (3.5-5.1)
[2023-04-19 11:36] LABS: ALBUMIN 3.1 g/dL (3.5-5.0); BILIRUBIN,TOTAL 0.3 mg/dL (0.2-1.0); TOTAL PROTEIN, SERUM 6.8 g/dL (6.0-8.3)
[2023-04-19 13:53] LABS: BILIRUBIN,URINE NEGATIVE (NEGATIVE); GLUCOSE, URINE (UA) NEGATIVE (NEGATIVE); KETONES,URINE NEGATIVE (NEGATIVE); LEUKOCYTE ESTERASE ,URINE NEGATIVE Leu/uL (NEGATIVE); NITRATE,URINE NEGATIVE (NEGATIVE); OCCULT BLOOD,URINE SMALL (NEGATIVE); PH,URINE 7.5 (5.0-8.0); PROTEIN,URINE 20 mg/dL (NEGATIVE); UROBILINOGEN,URINE 0.2 mg/dL (0.2-1.0)
[2023-04-19 13:55] LABS: APPEARANCE,URINE HAZY (CLEAR)
[2023-04-19 13:56] LABS: ADD UA MICROSCOPIC YES; COLOR,URINE YELLOW (YELLOW)
[2023-04-19 14:00] LABS: BACTERIA,URINE RARE /HPF (None Seen); MUCUS,URINE FEW LPF (None Seen); SQUAMOUS EPITHELIAL CELL,UR MOD /HPF (0-2); WBC,URINE 0-1 /HPF (0-1)
[2023-04-19] MEDS ORDERED: MECLIZINE HCL 25 MG TABLET PO ONE (14:00)
[2023-04-19] MEDS ORDERED: MECL-226 PO (14:20)
[2023-04-19 14:38] VITALS: BP 146/88; PULSE 76; RESP 18; O2SAT 98
== END 2023-04-19 14:39 | disposition home or self-care (01) ==
LOC: EDH 10:41
DX: R42 Dizziness and giddiness (principal); M25.571 Pain in right ankle and joints of right foot; M19.90 Unspecified osteoarthritis, unspecified site; Z79.899 Other long term (current) drug therapy; Z98.890 Other specified postprocedural states; Z88.8 Allergy status to other drugs, medicaments and biological substances
CPT/HCPCS: 99284; 96374; 96361; 84484; 80053; 84703; 83690; 85025; 81001; 36415; 73610; J7030; J2405

== ENCOUNTER 2023-07-12 12:36 | Emergency (ER) | payer OTHER ==
[~2023-07-12 12:36] MED LIST changes: +MECL-226 PO
== END 2023-07-12 13:48 | disposition left against medical advice (07) ==
LOC: EDH 12:38
DX: M79.672 Pain in left foot (principal); Z53.21 Procedure and treatment not carried out due to patient leaving prior to being seen by health care provider
CPT/HCPCS: 99281

== ENCOUNTER 2024-09-23 21:53 | Emergency (ER) | payer OTHER ==
[~2024-09-23] VITALS: Ht 175.3 cm; Wt 97.5 kg
[~2024-09-23 21:53] MED LIST changes: +ACET-66 PO; +ONDA-243 PO; -ONDA4TAB10 PO
--- NOTE | 2024-09-23 21:58 | NUR ---
COVID, FLU SWABS COLLECTED AND SENT
--- NOTE | 2024-09-23 21:59 | NUR ---
UA CUP PROVIDED
--- NOTE | 2024-09-23 22:16 | ERN ---
ED Note History of Present Illness Stated Complaint: FLUE LIKE SYMPTOMS Chief Complaint: Multiple Complaints Time Seen by MD: 21:58 Time Seen by Midlevel: 22:10 Dictation: Ms. Bray is a 38 year old female with history of arthritis, PCOS and obesity sent to the emergency department this evening for evaluation of flu symptoms. She reports having body aches, chills, fever, cough, sore throat/pain with swallowing, diaphoresis, and headaches times 48 hours. She states her child was sent home from school two days ago with fever. She states that she last treated her symptoms with NyQuil at 7:00 a.m.. She denies having chest pain, palpitations, shortness of breath, abdominal pain, nausea, vomiting, diarrhea, dysuria, or dizziness. Allergies: Coded Allergies: No Known Drug Allergies (Unverified Allergy, Unknown, 01/29/18) Pork/Porcine Containing Products (Unverified Allergy, Unknown, 01/14/21) Home Meds Active Scripts Acetaminophen (Tylenol) 500 Mg Tab, 500 MG PO q6 for 5 Days, #30 TAB Prov:CLEO SOUSA MD 01/20/24 Meclizine HCl (Meclizine HCl) 12.5 Mg Tablet, 12.5 MG PO TID PRN for DIZZINESS, #28 TAB Prov:NALLELY LEIP 04/19/23 Nitrofurantoin/Nitrofuran Mac (Macrobid) 100 Mg Cap, 1 CAP PO BID for 5 Days, #10 CAP 0 Refills Prov:MAVERICK BOWEN MD 08/02/22 Ondansetron (Ondansetron Odt) 4 Mg Tab.rapdis, 4 MG PO TID for 3 Days, #8 TAB Prov:MAVERICK BOWEN MD 08/02/22 Benzonatate (Tessalon Perles) 100 Mg Cap, 100 MG PO TID PRN for cough, #15 CAP 0 Refills Prov:ELAINE APONTE MD 09/18/21 Ondansetron (Ondansetron Odt) 4 Mg Tab.rapdis, 4 MG PO TID PRN for nausea, #15 TAB 0 Refills Prov:ELAINE APONTE MD 09/18/21 Oseltamivir Phosphate (Tamiflu) 75 Mg Cap, 75 MG PO BID, #10 CAP 0 Refills Prov:ELAINE APONTE MD 09/18/21 Levofloxacin (Levaquin 750Mg Tabs) 750 Mg Tablet, 750 MG PO DAILY for 10 Days, # 10 TAB 0 Refills Prov:NANCY BULL MD 01/20/21 Past Medical History Past Medical History: Arthritis Additional Past Medical Hx: PCOS Surgical History: Other Surgical History Other: CYST REMOVAL, BREAST IMPLANTS Family History: Negative Social History: Negative, Lives with family RN Note Reviewed/Agreed w/PFSH: Yes Review of System Dictation REVIEW OF SYSTEMS: CONSTITUTIONAL: Patient denies weight changes. Reports fatigue, general weakness, diaphoresis, chills, and fever EYES: Patient denies any visual symptoms. EARS, NOSE, AND THROAT: No difficulties with hearing. No symptoms of rhinitis. Reports sore throat/pain with swallowing CARDIOVASCULAR: Patient denies chest pains, palpitations, orthopnea and paroxysmal nocturnal dyspnea. RESPIRATORY: No dyspnea on exertion, no wheezing. Reports nonproductive cough GI: No nausea, vomiting, diarrhea, constipation, abdominal pain, hematochezia or melena. : No urinary hesitancy or dribbling. No nocturia or urinary frequency. No abnormal urethral discharge. MUSCULOSKELETAL: Reports body aches NEUROLOGIC: No chronic headaches, no seizures. Patient denies numbness, tingling or weakness. PSYCHIATRIC: Patient denies problems with mood disturbance. No problems with anxiety. ENDOCRINE: No excessive urination or excessive thirst. DERMATOLOGIC: Patient denies any rashes or skin changes. Initial Vital Sign VS Vital Signs Date Time Temp Pulse Resp B/P (MAP) Pulse Ox O2 Delivery O2 Flow Rate FiO2 09/23/24 21:54 100.9 93 20 123/79 97 Room Air Physical Exam Dictation Vital signs: Reviewed. Temp 100.9 Constitutional: No acute distress. Non-toxic appearing. Head/Face: Normocephalic, atraumatic. Eyes: Periorbital areas with no swelling, redness, or edema. Lids and lashes are normal. Conjunctival injection is absent. Sclera anicteric. Pupils equal, round, reactive to light. ENT: Pinnas intact and no signs of trauma or erythema. Ear canals clear and no discharge. TMs no erythema. No nasal discharge or bleeding noted. Oropharynx with erythema. Tonsils inflamed; no exudates. Mucous membranes are moist. Tongue with white coating. Neck: Trachea midline, no masses palpated, and no cervical lymphadenopathy. No swelling. Supple, full range of motion. Chest/Axilla: No tenderness, no crepitus, no paradoxical movement, no retracti ons. Cardiovascular: Regular rate, regular rhythm, no murmur, no gallops. Symmetric pulses. No peripheral edema. BP 123/79 Respiratory: Respirations even and unlabored. RR 18. Lung sounds clear; no wheezes, rales or rhonchi. Room air SpO2 97% Gastrointestinal: Inspection is normal. No distention is appreciated. Bowel sounds are normal. No mass or organomegaly . There is no tenderness. No rebound. No rigidity. No voluntary or involuntary guarding. No Woodward's sign. Neurological: Normal speech, gross motor function intact, gross sensory function intact. No focal weakness/Paresthesia. Musculoskeletal/Extremities: All extremities have full range of motion, no pain or tenderness on palpation. Symmetric pulses. Integumentary: Intact. Skin is normal color, warm and dry. Cap refill less than 3 seconds. Results (Laboratory/Radiology) Laboratory/Radiology Laboratory Tests Test 09/23/24 21:58 09/23/24 22:21 09/23/24 22:47 SARS-CoV-2, RNA, NAAT NEGATIVE SARS CoV-2 Group A Streptococcus Rapid positive (NEGATIVE) *A Urine Color YELLOW (YELLOW) Urine Appearance CLOUDY (CLEAR) H Urine pH 7.0 (5.0-8.0) Urine Specific [place] 1.022 (1.001-1.031) Urine Protein 10 mg/dL (NEGATIVE) H Urine Glucose (UA) NEGATIVE mg/dL (NEGATIVE) Urine Ketones NEGATIVE mg/dL (NEGATIVE) Urine Occult Blood +- (TRACE) (NEGATIVE) H Urine Nitrate NEGATIVE (NEGATIVE) Urine Bilirubin NEGATIVE mg/dL (NEGATIVE) Urine Urobilinogen 2.0 mg/dL (0.2-1.0) H Urine Leukocyte Esterase 250 Sury/uL (NEGATIVE) H Urine RBC 11-25 /HPF (0-1) H Urine WBC 6-10 /HPF (0-1) H Urine Squamous Epithelial Cells MOD /HPF (0-2) Urine Bacteria None /HPF (None Seen) Urine HCG, Qualitative NEGATIVE (NEGATIVE) Labs Reviewed?: Yes ED Course ED Course Orders Procedure Category Date Status Time Covid Rna Naat LAB 09/23/24 In Process 21:58 Influenza Type A & B, LAB 09/23/24 In Process Rapid 21:58 Urinalysis Profile LAB 09/23/24 Complete 21:58 ,Urine Test LAB 09/23/24 Complete 21:58 Rapid (Group A Strep) LAB 09/23/24 Complete 22:24 Acetaminophen 500mg PHA 09/23/24 Complete Tab (Tylenol 500mg T 23:00 Culture Urine MARIELOS 09/23/24 In Process 23:00 Current Medications Medications (Trade) Dose Ordered Sig/Germaine Route PRN Reason Start Time Stop Time Status Last Admin Dose Admin Acetaminophen (TYLenol 500MG TAB) 1,000 mg ONCE ONCE PO 09/23/24 23:00 09/23/24 23:01 DC 09/23/24 22:58 Vital Signs Date Time Temp Pulse Resp B/P (MAP) Pulse Ox O2 Delivery O2 Flow Rate FiO2 09/23/24 22:58 100.9 09/23/24 21:54 100.9 93 20 123/79 97 Room Air Uneventful ED course. Upon arrival to the emergency department low-grade temp 100.9. Laboratory findings as noted below. COVID and influenza B are negative. She is positive for influenza A and strep. UA cloudy;+ leukocyte esterase, blood, protein, and you WBCs 11-25 While in the emergency department she received doses Tylenol, Tamiflu, and IM Rocephin. These findings were discussed with patient and all questions were answered. Medical Decision Making MDM MDM: Differential diagnosis: influenza, COVID, strep, UTI Rationale: Tests considered and ordered secondary to shared decision making include: Labs Previous outside records reviewed: Old ER visits. Risk of complication and/or morbidity or mortality of patient management: None Medications-Per medication reconciliation Need for hospitalization: Patient does not meet criteria for hospitalization. Need for emergency major/minor surgery: No There are no social concerns with this patient. Prescription drug management: Cephalexin, ondansetron, Tamiflu, OTC Tylenol/ibuprofen Prescriptions will include symptomatic care Patient's prior external medical records from other ER visits were reviewed by me as indicated. Prior testing and results from previous visits were reviewed. Prior tests were taken into account with medical decision making and resource utilization, independent historian/historians were used to obtain complete medical history. I independently interpreted the test that were performed, results were reviewed by me and considered findings on radiology if ordered. Medical management and examination interpretation discussions were had by me with other qualified healthcare professionals as indicated for the patient's care. DX & DISP Disposition: Discharge Departure Impression: Primary Impression: Influenza A Additional Impressions: Strep throat, UTI (urinary tract infection) Condition: Stable Scripts Ondansetron (Ondansetron Odt) 4 Mg Tab.rapdis 4 MG PO Q6HPRN PRN for nausea, #15 TAB 0 Refills Prov: BERNABE GOODSON NP 09/23/24 Oseltamivir Phosphate (Tamiflu) 75 Mg Cap 1 CAP PO BID for 5 Days, #10 CAP 0 Refills Prov: BERNABE GOODSON NP 09/23/24 Cephalexin (Cephalexin) 500 Mg Tablet 1 TAB PO BID for 10 Days, #20 TAB 0 Refills Prov: BERNABE GOODSON GROUND INSTRUCTOR BASIC 09/23/24 Additional Instructions: . Drink plenty of fluids. Rest. Isolate at home until your symptoms subside and you have been fever free for 24 hours. Alternate Tylenol and ibuprofen ev selwyn 6 hours as needed for fever/body aches. Continue cephalexin 500 mg twice daily for urine infection. Continue Tamiflu twice daily for five days for influenza. May take ondansetron ODT every 6 hours as needed for nausea. Please follow up with your primary care physician in the next 2-3 days. Return to the emergency department for any worsening of symptoms or concerns Referrals: SIMÓN SALMON (PCP) Time of Disposition: 23:27 BERNABE GOODSON NP Sep 23, 2024 22:16
--- NOTE | 2024-09-23 22:21 | NUR ---
STREP SWAB COLLECTED AND SENT
[2024-09-23 22:47] LABS: SARS-CoV-2, RNA, NAAT NEGATIVE SARS CoV-2 (NEGATIVE)
[2024-09-23 22:58] VITALS: TEMP 100.9
[2024-09-23 22:58] LABS: HCG,QUALITATIVE URINE NEGATIVE (NEGATIVE)
[2024-09-23] MEDS: acetaMINOPHEN 500 MG TABLET PO ONE (22:58)
[2024-09-23 22:59] LABS: APPEARANCE,URINE CLOUDY (CLEAR); BILIRUBIN,URINE NEGATIVE (NEGATIVE); COLOR,URINE YELLOW (YELLOW); GLUCOSE, URINE (UA) NEGATIVE (NEGATIVE); KETONES,URINE NEGATIVE (NEGATIVE); LEUKOCYTE ESTERASE ,URINE 250 Leu/uL (NEGATIVE); NITRATE,URINE NEGATIVE (NEGATIVE); PROTEIN,URINE 10 mg/dL (NEGATIVE)
[2024-09-23 23:00] LABS: ADD UA MICROSCOPIC YES
[2024-09-23 23:02] LABS: MUCUS,URINE RARE LPF (None Seen); SQUAMOUS EPITHELIAL CELL,UR MOD /HPF (0-2)
[2024-09-23 23:17] LABS: INFLUENZA TYPE B Negative For Type B (NEGATIVE)
[2024-09-23 23:23] LABS: INFLUENZA TYPE A Positive For Type A (NEGATIVE)
[2024-09-23] MEDS ORDERED: CEPH500T PO (23:26)
[2024-09-23] MEDS ORDERED: OSEL75 PO (23:26)
[2024-09-23] MEDS ORDERED: ONDA-243 PO (23:26)
[2024-09-23] MEDS: OSELTAMIVIR PHOSPHATE 75 MG CAP PO ONE (23:34)
[2024-09-23] MEDS: cefTRIAXone 1G VIAL IM ONE (23:34)
[2024-09-23 23:50] VITALS: BP 123/65; PULSE 78; RESP 18; TEMP 100.1; O2SAT 99
== END 2024-09-24 00:31 | disposition home or self-care (01) ==
LOC: EDH 21:53
DX: J10.1 Influenza due to other identified influenza virus with other respiratory manifestations (principal); J02.0 Streptococcal pharyngitis; N39.0 Urinary tract infection, site not specified; M19.90 Unspecified osteoarthritis, unspecified site; Z20.822 Contact with and (suspected) exposure to COVID-19; Z79.899 Other long term (current) drug therapy; Z98.890 Other specified postprocedural states
CPT/HCPCS: 99283; 87635; 87086; 87880; 87804 ×2; 81001; 81025; 96372; J0696

== ENCOUNTER 2025-04-13 18:24 | Emergency (ER) | payer OTHER ==
[~2025-04-13] VITALS: Ht 175.3 cm; Wt 86.2 kg
[~2025-04-13 18:24] MED LIST changes: +CEPH500T PO
--- NOTE | 2025-04-13 19:02 | ERN ---
ED Note History of Present Illness Stated Complaint: PELVIC PRESSURE Chief Complaint: Pelvic Pain Time Seen by MD: 18:33 Dictation: PATIENT IS A 39-YEAR-OLD FEMALE WITH TWO COMPLAINTS 1ST COMPLAINT IS SHE IS HAVING SOME NECK PAIN NON TRAUMA AND STATES MY RA IS ACTING UP. COMPLAINT IS SHE IS HAVING VAGINAL SPOTTING FOR THE 1ST TWO DAYS OF THE WEEK AND THEN IT STOPPED TODAY. SHE STATES SHE HAS HAD URINARY URGENCY FREQUENCY WITH NAUSEA VOMITING X2. CHILLS NO FLANK PAIN. STATES SHE HAD NOT HAD HER MENSES IN TWO YEARS AND SAW HER SEQUENCING MACHINE OPERATOR DOCTOR IN DECEMBER. HE GAVE HER A PILL TO START HER MENSES. STATES SHE IS SEXUALLY ACTIVE NO PROTECTION. SHE HAS TAKEN NAPROXEN AND STEROID TODAY FROM HER ANALYTICS ARCHITECT. SHE STATES SHE HAS NOT SEEN ANY OF HER DOCTOR SINCE THE ONSET OF THE SYMPTOMS THREE DAYS AGO FOR Allergies: Coded Allergies: No Known Drug Allergies (Unverified Allergy, Unknown, 01/29/18) Pork/Porcine Containing Products (Unverified Allergy, Unknown, 01/14/21) Home Meds Active Scripts Ondansetron (Ondansetron Odt) 4 Mg Tab.rapdis, 4 MG PO Q6HPRN PRN for nausea, #15 TAB 0 Refills Prov:BERNABE GOODSON NP 09/23/24 Oseltamivir Phosphate (Tamiflu) 75 Mg Cap, 1 CAP PO BID for 5 Days, #10 CAP 0 Refills Prov:BERNABE GOODSON NP 09/23/24 Cephalexin (Cephalexin) 500 Mg Tablet, 1 TAB PO BID for 10 Days, #20 TAB 0 Refills Prov:BERNABE GOODSON NP 09/23/24 Acetaminophen (Tylenol) 500 Mg Tab, 500 MG PO q6 for 5 Days, #30 TAB Prov:CLEO SOUSA MD 01/20/24 Meclizine HCl (Meclizine HCl) 12.5 Mg Tablet, 12.5 MG PO TID PRN for DIZZINESS, #28 TAB Prov:NALLELY LEI DRAGGER 04/19/23 Nitrofurantoin/Nitrofuran Mac (Macrobid) 100 Mg Cap, 1 CAP PO BID for 5 Days, #10 CAP 0 Refills Prov:MAVERICK BOWEN MD 08/02/22 Ondansetron (Ondansetron Odt) 4 Mg Tab.rapdis, 4 MG PO TID for 3 Days, #8 TAB Prov:MAVERICK BOWEN MD 08/02/22 Benzonatate (Tessalon Perles) 100 Mg Cap, 100 MG PO TID PRN for cough, #15 CAP 0 Refills Prov:ELAINE APONTE MD 09/18/21 Ondansetron (Ondansetron Odt) 4 Mg Tab.rapdis, 4 MG PO TID PRN for nausea, #15 TAB 0 Refills Prov:ELAINE APONTE MD 09/18/21 Oseltamivir Phosphate (Tamiflu) 75 Mg Cap, 75 MG PO BID, #10 CAP 0 Refills Prov:ELAINE APONTE MD 09/18/21 Levofloxacin (Levaquin 750Mg Tabs) 750 Mg Tablet, 750 MG PO DAILY for 10 Days, #10 TAB 0 Refills Prov:NANCY BULL MD 01/20/21 Past Medical History Past Medical History: Ovarian Cyst Additional Past Medical Hx: PCOS Surgical History: None Surgical History Other: LT OVARIAN CYST REMOVAL Family History: Negative Social History: Negative, Lives with family History: Not Applicable RN Note Reviewed/Agreed w/PFSH: Yes Review of System Dictation CONSTITUTIONAL: NEGATIVE EXCEPT FOR HPI HEAD/FACE: NEGATIVE EXCEPT FOR HPI EENT: NEGATIVE EXCEPT FOR HPI RESPIRATORY: NEGATIVE EXCEPT FOR HPI GASTROINTESTINAL/ABDOMINAL: NEGATIVE EXCEPT FOR HPI SUPRAPUBIC PAIN GENITOURINARY: NEGATIVE EXCEPT FOR HPI URINARY URGENCY FREQUENCY WITH SPOTTING MUSCULOSKELETAL: NEGATIVE EXCEPT FOR HPI MULTIPLE JOINT PAIN TO INCLUDE NON TRAUMA, RIGHT POSTERIOR CERVICAL PAIN. INTEGUMENTARY: NEGATIVE EXCEPT FOR HPI NEUROLOGICAL/PSYCH: NEGATIVE EXCEPT FOR HPI HEMATOLOGIC/LYMPHATIC: NEGATIVE EXCEPT FOR HPI ALL SYSTEMS NEGATIVE, EXCEPT NOTED ABOVE. 13 POINT REVIEW OF SYSTEMS ASSESSED AND ALL NEGATIVE EXCEPT FOR ABOVE. Initial Vital Sign VS Vital Signs Date Time Temp Pulse Resp B/P (MAP) Pulse Ox O2 Delivery O2 Flow Rate FiO2 04/13/25 18:26 97.2 68 18 125/77 100 Room Air 0 Physical Exam Dictation VITAL SIGNS REVIEWED GENERAL APPEARANCE: ALERT, ORIENTED X 3, MODERATE ACUTE DISTRESS, WELL DEVELOPED, NOURISHED. HEAD AND FACE: NON-TRAUMATIC. EYES: PERRL, PINK CONJUNCTIVAS, EYELID NO TRAUMA, ANTERIOR CHAMBER WITH ARCUS SENILIS. EARS: PINNAS INTACT AND NO SIGNS OF TRAUMA OR ERYTHEMA EAR CANALS CLEAR AND NO DISCHARGE TM NO ERYTHEMA NOSE: NO DISCHARGE, NO BLEEDING. OROPHARYNX: MOUTH NORMAL, TONGUE PINK, PHARYNX CLEAR,NO ERYTHEMA, TONSILS NO EXUDATES, NO ABSCESSES NOTED, MUCOUS MEMBRANE MOIST NECK: SUPPLE, NON-TENDER, NO THYROMEGALY, NO MASSES, NO JVD, NO BRUITS BREAST:DEFERRED CHEST:NO TENDERNESS, NO CREPITUS, NO PARADOXICAL MOVEMENT, NO RETRACTIONS LUNGS:CLEAR, WELL-VENTILATED, SYMMETRIC, NO RALES, NO WHEEZING, NO RHONCHI, NO STRIDOR, GOOD BREATH SOUNDS BILATERALLY HEART: REGULAR RATE, REGULAR RHYTHM, NO MURMUR, NO GALLOPS VASCULAR: NO PERIPHERAL EDEMA, ABDOMEN: SOFT, POSITIVE BOWEL SOUNDS, NONDISTENDED, NO GUARDING, NONTENDER, NO REBOUND, NO MASSES NO HEPATOMEGALY, NO SPLENOMEGALY, NO GENAO'S SIGN, NO HERNIAS. RECTAL: DEFERRED GENITAL: DEFERRED MILD SUPRAPUBIC TENDERNESS WITH PALPATION NEUROLOGICAL: NORMAL SPEECH, MOTOR FUNCTION INTACT, SENSORY FUNCTION INTACT MUSCULOSKELETAL: RIGHT POSTEROLATERAL CERVICAL TENDERNESS WITH PALPATION., FULL RANGE OF MOTION, BACK NONTENDER, FULL RANGE OF MOTION, NO MIDLINE SPINE PAIN, MOVES ALL EXTREMITIES 5/5 BILATERALLY. EXTREMITIES: NONTENDER, FULL RANGE OF MOTION SKIN: COLOR PINK, DRY, NO TURGOR, NO RASH, NO LACERATIONS, NO ABRASIONS, NO CONTUSIONS. LYMPHATIC: DEFERRED Results (Laboratory/Radiology) Laboratory/Radiology Laboratory Tests Test 04/13/25 18:49 04/13/25 19:29 White Blood Count 6.1 K/uL (4.8-10.8) Red Blood Count 3.84 MIL/uL (4.00-5.50) L Hemoglobin 12.5 g/dL (12.0-16.0) Hematocrit 36.0 % (36-48) Mean Corpuscular Volume 93.8 fL (79-99) Mean Corpuscular Hemoglobin 32.6 pg (27.0-33.0) Mean Corpuscular Hemoglobin Concent 34.7 g/dL (32.0-36.0) Red Cell Distribution Width 12.4 % (11.0-15.5) Platelet Count 214 K/uL (130-400) Mean Platelet Volume 11.2 fL (7.5-10.5) H Immature Granulocyte % (Auto) 0.2 % (0-1) Neutrophils (%) (Auto) 48.8 % (40.0-77.0) Lymphocytes (%) (Auto) 36.7 % (21.0-51.0) Monocytes (%) (Auto) 10.2 % (3.0-13.0) Eosinophils (%) (Auto) 3.8 % (0.0-8.0) Basophils (%) (Auto) 0.3 % (0.0-5.0) Neutrophils # (Auto) 3.0 K/uL (1.8-7.7) Lymphocytes # (Auto) 2.2 K/uL (1.0-4.8) Monocytes # (Auto) 0.6 K/uL (0.1-1.0) Eosinophils # (Auto) 0.23 K/uL (0.00-0.70) Basophils # (Auto) 0.02 K/uL (0.00-0.20) Absolute Immature Granulocyte (auto 0.01 K/uL (0-1) Nucleated Red Blood Cells 0.0 % (0.0-0.19) Sodium Level 140 mmol/L (136-145) Potassium Level 3.8 mmol/L (3.5-5.1) Chloride Level 104 mmol/L (101-111) Carbon Dioxide Level 30 mmol/L (21-32) Blood Urea Nitrogen 12 mg/dL (7-18) Creatinine 0.7 mg/dL (0.5-1.0) Glomerular Filtration Rate Calc 113 mL/min (>90) Random Glucose 93 mg/dL (70-105) Total Calcium 9.0 mg/dL (8.5-10.1) Serum Test, Qualitative NEGATIVE (NEGATIVE) Urine Color YELLOW (YELLOW) Urine Appearance CLEAR (CLEAR) Urine pH 6.0 (5.0-8.0) Urine Specific [place] 1.025 (1.001-1.031) Urine Protein NEGATIVE mg/dL (NEGATIVE) Urine Glucose (UA) NEGATIVE mg/dL (NEGATIVE) Urine Ketones NEGATIVE mg/dL (NEGATIVE) Urine Occult Blood +- (TRACE) (NEGATIVE) H Urine Nitrate NEGATIVE (NEGATIVE) Urine Bilirubin NEGATIVE mg/dL (NEGATIVE) Urine Urobilinogen 3 mg/dL (0.2-1.0) H Urine Leukocyte Esterase 25 Sury/uL (NEGATIVE) H Urine RBC 2-5 /HPF (0-1) H Urine WBC 11-25 /HPF (0-1) H Urine Squamous Epithelial Cells FEW /HPF (0-2) Urine Non-Squamous Epithelial Cells 1 /HPF (0-2) Urine Bacteria RARE /HPF (None Seen) Labs Reviewed?: Yes ED Course ED Course Orders Procedure Category Date Status Time Testing, LAB 04/13/25 Complete Serum Hcg 18:57 Cbc With Differential LAB 04/13/25 Complete 18:57 Urinalysis Profile LAB 04/13/25 Complete 18:57 Basic Metabolic Panel LAB 04/13/25 Complete 18:57 Dexamethasone 4mg/Ml PHA 04/13/25 Complete 1ml Vial (Dexametha 18:57 Hydrocodone/Apap PHA 04/13/25 Complete 5/325 ([place] 5/325mg) 19:00 Culture Urine MARIELOS 04/13/25 Logged 20:01 Current Medications Medications (Trade) Dose Ordered Sig/Germaine Route PRN Reason Start Time Stop Time Status Last Admin Dose Admin Acetaminophen/ Hydrocodone Bitart (NORco 5/325MG) 1 tab ONCE ONCE PO 04/13/25 19:00 04/13/25 19:01 DC 04/13/25 19:06 Dexamethasone Sodium Phosphate (dexaMETHasone 4MG/ML 1ML VIAL) 8 mg ONCE STAT IV 04/13/25 18:57 04/13/25 18:59 DC 04/13/25 19:03 Vital Signs Date Time Temp Pulse Resp B/P (MAP) Pulse Ox O2 Delivery O2 Flow Rate FiO2 04/13/25 18:26 97.2 68 18 125/77 100 Room Air 0 2000/PATIENT STATES MARKEDLY IMPROVED AND DEMONSTRATING INCREASED RANGE OF MOTION TO NECK. SHE IS AWARE THAT SHE HAS DYSFUNCTIONAL UTERINE BLEEDING RA FLARE. WE WILL BE SENT HOME WITH ULTRACET TOLD TO CONTINUE HER STEROIDS FROM HER ANALYTICS ARCHITECT AND FOLLOW UP WITH HER SEQUENCING MACHINE OPERATOR DOCTOR, RODOLFO DUNCAN IN THE NEXT 2-3 DAYS Medical Decision Making MDM MDM: DIFFERENTIAL DIAGNOSIS: DYSFUNCTIONAL UTERINE BLEEDING/ANEMIA/ELECTROLYTE IMBALANCE/DEHYDRATION/INFECTION/UTI ARTHRITIS FLARE RATIONALE: TESTS CONSIDERED AND ORDERED SECONDARY TO SHARED DECISION MAKING INCLUDE: LABS PREVIOUS OUTSIDE RECORDS REVIEWED: OLD ER VISITS. RISK OF COMPLICATION AND/OR MORBIDITY OR MORTALITY OF PATIENT MANAGEMENT: NONE MEDICATIONS-PER MEDICATION RECONCILIATION NEED FOR HOSPITALIZATION: PATIENT DOES NOT MEET CRITERIA FOR HOSPITALIZATION. NONE NEED FOR EMERGENCY MAJOR/MINOR SURGERY: NO THERE ARE NO SOCIAL CONCERNS WITH THIS PATIENT. PRESCRIPTION DRUG MANAGEMENT ULTRASOUND PRESCRIPTIONS WILL INCLUDE SYMPTOMATIC CARE PATIENT'S PRIOR EXTERNAL MEDICAL RECORDS FROM OTHER ER VISITS WERE REVIEWED BY ME INDICATED. PRIOR TESTING AND RESULTS FROM PREVIOUS VISITS WERE REVIEWED. PRIOR TESTS WERE TAKEN INTO ACCOUNT WITH MEDICAL DECISION MAKING AND RESOURCE UTILIZATION, INDEPENDENT HISTORIAN/HISTORIANS WERE USED TO OBTAIN COMPLETE MEDICAL HISTORY. I INDEPENDENTLY INTERPRETED THE TEST THAT WERE PERFORMED, RESULTS WERE REVIEWED BY ME AND CONSIDERED FINDINGS ON RADIOLOGY IF ORDERED. MEDICAL MANAGEMENT AND EXAMINATION INTERPRETATION DISCUSSIONS WERE HAD BY ME WITH OTHER QUALIFIED HEALTHCARE PROFESSIONALS INDICATED FOR THE PATIENT'S CARE. DX & DISP Disposition: Discharge Departure Impression: Primary Impression: Dysfunctional uterine bleeding Additional Impression: Rheumatoid arthritis flare Condition: Stable Scripts Tramadol HCl/Acetaminophen (Tramadol-Acetaminophn 37.5-325) 37.5 Mg-325 Mg Tablet 2 EACH PO Q6HPRN PRN for MODERATE TO SEVERE PAIN, #12 TAB 0 Refills Prov: CHUCK LAGOS NP 04/13/25 Additional Instructions: Follow-up with primary care provider in 1 to 2 days. Take medications as directed here in the emergency room. Okay to continue home medications unless otherwise discussed during your visit in the emergency room today. Return to your nearest emergency room if symptoms worsen or if there is no improvement. Call 911 if you need immediate assistance. Take Tylenol or Motrin [id number] as needed and if no contraindications are present. Increase oral hydration. A wound culture or urine culture was ordered here in the emergency room department please follow-up with primary care provider and advise them to get repeat ports from our facility. If you had any Deon wrap/splints that were applied here, please do not remove them until you see your primary care or specialty. Diet and activity as tolerated. Follow up with the your community development specialist doctor, Dr. Duncan in the next 1-2 days for your bleeding. See your events director's or follow up with the your primary care doctor for the rheumatoid arthritis flare. Referrals: SIMÓN SALMON (PCP) Time of Disposition: 20:04 I have reviewed the case, and I agree with, Diagnosis and Plan CHUCK LAGOS NP Apr 13, 2025 19:02
[2025-04-13] MEDS: HYDROcodone/APAP 5/325 1 TAB TABLET PO ONE (19:06)
[2025-04-13 19:12] LABS: IMMATURE GRANULOCYTE ABSOLUTE 0.01 K/uL (0-1); NUCLEATED RED BLOOD CELLS 0.0 % (0.0-0.19); PLATELET COUNT (AUTO) 214 K/uL (130-400); RED BLOOD CELL COUNT(AUTO) 3.84 MIL/uL (4.00-5.50); RED CELL DISTRIBUTION WIDTH 12.4 % (11.0-15.5); WHITE BLOOD COUNT (AUTO) 6.1 K/uL (4.8-10.8)
[2025-04-13 19:18] LABS: CREATININE 0.7 mg/dL (0.5-1.0); GLOMERULAR FILTR. RATE CALC 113.0 mL/min (>90); GLUCOSE,RANDOM 93.0 mg/dL (70-105); SODIUM SERUM 140.0 mmol/L (136-145); UREA NITROGEN, BLOOD 12.0 mg/dL (7-18)
[2025-04-13 19:50] LABS: APPEARANCE,URINE CLEAR (CLEAR); GLUCOSE, URINE (UA) NEGATIVE (NEGATIVE); LEUKOCYTE ESTERASE ,URINE 25 Leu/uL (NEGATIVE); NITRATE,URINE NEGATIVE (NEGATIVE); OCCULT BLOOD,URINE +- (TRACE) (NEGATIVE)
[2025-04-13 19:51] LABS: ADD UA MICROSCOPIC YES
[2025-04-13 20:00] LABS: NON-SQUAMOUS EPITHELIAL CELL 1 /HPF (0-2); SQUAMOUS EPITHELIAL CELL,UR FEW /HPF (0-2)
[2025-04-13] MEDS ORDERED: TRAM-543 PO (20:05)
[2025-04-13 20:21] VITALS: BP 122/67; PULSE 75; RESP 18; TEMP 97.7; O2SAT 97
== END 2025-04-13 20:23 | disposition home or self-care (01) ==
LOC: EDH 18:24
DX: N93.8 Other specified abnormal uterine and vaginal bleeding (principal); M06.9 Rheumatoid arthritis, unspecified; Z98.890 Other specified postprocedural states; Z79.899 Other long term (current) drug therapy
CPT/HCPCS: 99283; 96374; 80048; 84703; 85025; 87086; 81001; 36415; J1100